=== PATIENT | male | born 1955 | race Caucasian/White ===

== ENCOUNTER 2017-12-17 11:46 | Emergency (ER) | payer MEDICAID, OTHER ==
[2017-12-17 12:10] LABS: ADD MAN DIFF? NO
[2017-12-17 12:13] LABS: WHITE BLOOD COUNT 6.8 10^3/ul (4.8-10.8)
[2017-12-17 12:13] LABS: BASOPHILS % 0.4 % (0.0-2.0); EOSINOPHILS % 0.4 % (0.0-7.0); HEMATOCRIT 45.1 % (42.0-52.0); HEMOGLOBIN 16.1 g/dl (14.0-18.0); LYMPHOCYTES # 2.5 10^3/ul (0.8-2.9); LYMPHOCYTES % 35.8 % (15.0-51.0); MEAN CORPUSCULAR HEMOGLOBIN 30.8 pg (29.0-33.0); MEAN CORPUSCULAR HGB CONC 35.7 g/dl (32.0-37.0); MEAN CORPUSCULAR VOLUME 86.2 fl (82.0-101.0); MEAN PLATELET VOLUME 10.1 fl (7.4-10.4); MONOCYTE # 0.4 10^3/ul (0.3-0.9); MONOCYTES % 5.4 % (0.0-11.0); NEUTROPHIL # 3.9 10^3/ul (1.6-7.5); NEUTROPHILS % 57.7 % (39.0-77.0); PLATELET COUNT 190 10^3/UL (140-415); RED BLOOD COUNT 5.23 10^6/ul (4.70-6.10); RED CELL DISTRIBUTION WIDTH 11.7 % (11.5-14.5)
[2017-12-17] MEDS: FENTAnyl 50 MCG/ML VIAL IV (12:17)
[2017-12-17] MEDS: DIPHTH/TET/ACEL PERTUSS (ADULT) 0.5 ML VIAL IM* (12:21)
[2017-12-17 12:31] LABS: ANION GAP 18 (8-16); BLOOD UREA NITROGEN 17 mg/dl (7-20); CALCIUM 9.6 mg/dl (8.4-10.2); CARBON DIOXIDE 22 mmol/L (21-31); CHLORIDE 98 mmol/L (97-110); POTASSIUM 3.7 mmol/L (3.5-5.1); SODIUM 134 mmol/L (135-144)
[2017-12-17 12:36] LABS: INR 0.93; PROTIME 12.6 Sec (11.9-14.9)
[2017-12-17 12:39] LABS: GLUCOSE 605 mg/dl (70-220)
[2017-12-17] MEDS: SOD CHLORIDE 0.9% 1,000 ML IV (13:22)
== END 2017-12-17 15:31 | disposition short-term general hospital (02) ==
LOC: E/R 11:46
DX: S61.412A Laceration without foreign body of left hand, initial encounter (principal); S61.211A Laceration without foreign body of left index finger without damage to nail, initial encounter; S66.922A Laceration of unspecified muscle, fascia and tendon at wrist and hand level, left hand, initial encounter; E11.9 Type 2 diabetes mellitus without complications; R20.2 Paresthesia of skin; W29.3XXA Contact with powered garden and outdoor hand tools and machinery, initial encounter; Y92.9 Unspecified place or not applicable; Z23 Encounter for immunization
CPT/HCPCS: 73130; 73130-LT; 80048; 85025; 85610; 86850; 86900; 86901; 90471; 90715; 96374; 99285-25